=== PATIENT | female | born 1980 | race Caucasian/White ===

== ENCOUNTER → 2016-10-09 | Outpatient (CLI) | payer OTHER | LOC: BRMIMAGING 09:10 | PROVIDERS: ATTEND Internal Medicine | DX: M25.541 Pain in joints of right hand (principal); M25.542 Pain in joints of left hand; M25.571 Pain in right ankle and joints of right foot; M25.572 Pain in left ankle and joints of left foot | CPT/HCPCS: 73130-PO; 73630-PO ==